=== PATIENT | male | born 1960 | race Caucasian/White ===

== ENCOUNTER 2020-04-01 10:07 | Emergency (ER) | payer OTHER, SELFPAY ==
[2020-04-01 10:16] VITALS: BP 154/84; PULSE 103; RESP 16; TEMP 37.4; O2SAT 95
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
== END 2020-04-01 10:38 | disposition short-term general hospital (02) ==
PROVIDERS: Emergency Provider Nurse Practitioner Family
DX: R10.12 Left upper quadrant pain (principal)
CPT/HCPCS: 99213; G0463